=== PATIENT | female | born 1980 | race American Indian/Alaskan Native ===

== ENCOUNTER 2016-10-07 18:04 | Outpatient (CLI) | payer MEDICAID ==
[2016-10-07 21:28] LABS: Hematocrit 45.3 % (30.3-42.9); Hemoglobin 14.6 gm/dl (10.1-14.3); Mean Corpuscular HGB Conc 32 % (30-34); Mean Corpuscular Hemoglobin 26 pg (28-32); Mean Corpuscular Volume 81 fl (79-97); Red Cell Distribution Width 14.7 % (13.2-15.2); White Blood Count 7.6 K/mm3 (4.5-11.0)
[2016-10-07 21:42] LABS: Platelet Count 121 K/mm3 (140-440)
[2016-10-07 21:43] LABS: Bilirubin,Urine SM (Negative); Blood,Urine NEG (Negative); Ketones,Urine TR mg/dL (Negative); Leukocyte Esterase,Urine SM (Negative); Mucus,Urine 3+ /HPF; Nitrite,Urine NEG (Negative)
[2016-10-07 21:46] LABS: Alanine Aminotransferase 9 units/L (7-56); Lactate Dehydrogenase 405 units/L (91-180); Uric Acid 6.3 mg/dL (3.5-7.6)
[2016-10-07 21:56] VITALS: BP 144/65
[2016-10-07] MEDS ORDERED: NORCO 5/325 PO ONE (22:02)
[2016-10-07] MEDS ORDERED: NORCO 5/325 ONE (22:06)
== END 2016-10-07 23:07 | disposition home or self-care (01) ==
LOC: TRG 18:04
PROVIDERS: ATTEND Obstetrics & Gynecology
DX: O47.1 False labor at or after 37 completed weeks of gestation (principal); Z3A.39 39 weeks gestation of pregnancy
CPT/HCPCS: 36415; 81001; 82565; 83615; 84450; 84460; 84550; 85027

== ENCOUNTER 2016-10-17 21:17 | Inpatient (IN) | payer MEDICAID ==
[2016-10-17] MEDS ORDERED: MILK OF MAGNESIA PO PRN (21:33)
[2016-10-17] MEDS ORDERED: COLACE PO PRN (21:33)
[2016-10-17] MEDS ORDERED: MAGNESIUM SULFATE 4GM/100ML 4 GM/100 ML BAG IV ONE (21:33)
[2016-10-17] MEDS ORDERED: APRESOLINE IV PRN (21:33)
[2016-10-17] MEDS ORDERED: ZOFRAN IV PRN (21:33)
--- NOTE | 2016-10-17 21:42 | Short Stay Summary ---
Short Stay Documentation Date of service: 10/17/16 - History Principal diagnosis: Preeclampsia H&P: obtained from office Social history: no significant social history - Allergies and Medications Current Medications: Allergies No Known Allergies Allergy (Verified 09/24/16 20:55) Home Medications Medication Instructions Recorded Confirmed Last Taken Type Vit No.130/Iron/FA 1 each PO QDAY 09/25/16 10/11/16 09/24/16 History [ Tablet] Active Medications Acetaminophen (Tylenol) 650 mg PO Q4H PRN PRN Reason: Pain MILD(1-3)/Fever >100.5/MCCURDY Docusate Sodium (Colace) 100 mg PO Q12H PRN PRN Reason: Constipation Hydralazine HCl (Apresoline) 10 mg IV Q30MIN PRN PRN Reason: Blood Pressure Lactated Ringer's (Lactated Ringers) 1,000 mls @ 125 mls/hr IV DIRECT NIDHI Magnesium Sulfate (Magnesium Sulfate 40gm/1000ml) 40 gm in 1,000 mls @ 50 mls/ hr IV DIRECT NIDHI PRN Reason: 2 GM/HR Magnesium Sulfate (Magnesium Sulfate 4gm/100ml) 4 gm in 100 mls @ 300 mls/hr IV ONCE ONE Stop: 10/17/16 21:52 Magnesium Hydroxide (Milk Of Magnesia) 30 ml PO QHS PRN PRN Reason: Laxative Effect Multivitamins/Iron/Calcium ( Vitamin) 1 each PO QDAY NIDHI Ondansetron HCl (Zofran) 4 mg IV Q6H PRN PRN Reason: Nausea And Vomiting - Physical exam General appearance: no acute distress Integumentary: no rash HEENT: Atraumatic Lungs: Clear to auscultation Breasts: deferred Heart: Regular rate Gastrointestinal: normal Female Genitourinary: deferred Rectal Exam: deferred Extremities: No edema Neurological: Normal speech Short Stay Discharge Plan Follow up with: MYLENE GIBSON MD [Primary Care Provider] - 7 Days
[2016-10-17 22:10] LABS: Basophils % (Auto) 0.8 % (0.0-1.8); Eosinophils % (Auto) 3.6 % (0.0-4.3); Hematocrit 31.5 % (30.3-42.9); Hemoglobin 10.1 gm/dl (10.1-14.3); Mean Corpuscular HGB Conc 32 % (30-34); Mean Corpuscular Hemoglobin 26 pg (28-32); Mean Corpuscular Volume 81 fl (79-97); Platelet Count 288 K/mm3 (140-440); Red Cell Distribution Width 15.1 % (13.2-15.2); White Blood Count 8.5 K/mm3 (4.5-11.0)
[2016-10-17 22:20] LABS: Alanine Aminotransferase 17 units/L (7-56)
[2016-10-17 22:21] LABS: Albumin 3.4 g/dL (3.9-5); Albumin/Globulin Ratio 0.9 %; Alkaline Phosphatase 122 units/L (35-129); BUN/Creatinine Ratio 11.42; Bilirubin,Total 0.2 mg/dL (0.1-1.2); Blood Urea Nitrogen 8 mg/dL (7-17); Calcium 8.9 mg/dL (8.4-10.2); Carbon Dioxide 24 mmol/L (22-30); Chloride 102.9 mmol/L (98-107); Glucose 79 mg/dL (65-100); Sodium 138 mmol/L (137-145); Total Protein 7.3 g/dL (6.3-8.2)
[2016-10-17] MEDS: TYLENOL PO PRN (22:21)
[2016-10-17] MEDS: MAGNESIUM SULFATE 40GM/1000ML 40 GM/1,000 ML BAG IV SCH (22:22)
[2016-10-17] MEDS: LACTATED RINGERS 1,000 ML IV SCH (22:23)
[2016-10-17 22:26] LABS: Alanine Aminotransferase 17 units/L (7-56)
[2016-10-17 22:32] LABS: Anion Gap 16 mmol/L; Potassium 4.5 mmol/L (3.6-5.0)
[2016-10-17 23:39] LABS: Bilirubin,Urine NEG (Negative); Blood,Urine SM (Negative); Ketones,Urine NEG (Negative); Leukocyte Esterase,Urine NEG (Negative); Mucus,Urine 1+ /HPF; Nitrite,Urine NEG (Negative)
[2016-10-18] MEDS: TYLENOL PO PRN ×2 (02:32→06:46)
[2016-10-18] MEDS: PERCOCET 5/325 PO PRN ×3 (07:49→20:03)
[2016-10-18] MEDS: PRENATAL VITAMIN PO SCH (10:03)
[2016-10-18] MEDS: NORMODYNE PO SCH ×2 (10:04→22:03)
[2016-10-18] MEDS: LACTATED RINGERS 1,000 ML IV SCH (12:04)
--- NOTE | 2016-10-18 16:23 | Progress Note ---
Assessment and Plan - Patient Problems (1) Pre-eclampsia affecting puerperium Onset Date: 10/18/16 Current Visit: Yes Status: Acute Plan to address problem: A: preeclampsia - improved on IV Magnesium sulfate and PO Labetolol. Most likely Chronic hypertension Chronic Hypertension P: Continue with Labetolol 200mg BID Anticipate discharge in 24hrs Subjective - Subjective Date of service: 10/18/16 Principal diagnosis: Preeclampsia Interval history: Pt states she is feeling a little better. Headaches improved. BP 127/71 after starting Labetolol 200mg BID this morning. Patient reports: appetite normal, voiding normally, pain well controlled, ambulating normally Objective - Vital Signs Latest vital signs: Vital Signs Temp Pulse Pulse Resp BP BP 10/18/16 14:00 97.9 F 70 18 127/71 10/18/16 12:00 98.1 F 73 18 142/74 10/18/16 10:15 140/81 10/18/16 10:04 74 135/79 10/18/16 10:00 74 135/79 10/18/16 07:59 72 180/100 10/18/16 07:55 72 180/100 10/18/16 07:45 97.7 F 72 20 163/94 10/18/16 05:55 97.8 F 70 20 148/97 10/18/16 04:30 67 18 155/92 10/18/16 02:30 74 155/89 10/18/16 00:20 97.5 F L 74 20 156/88 10/17/16 23:35 78 138/89 10/17/16 23:20 76 147/90 10/17/16 23:05 80 150/90 10/17/16 23:00 80 154/97 10/17/16 22:50 178/98 Intake and Output 10/18/16 10/18/16 10/18/16 06:59 14:59 22:59 Intake Total 750 1540 Output Total 800 1000 Balance -50 540 Intake: IV 750 1300 Lactated Ringers 1,000 ml 450 1000 @ 125 mls/hr IV DIRECT NIDHI Rx#:[id number] MAGNESIUM SULFATE 40GM/ 300 300 1000ML 40 gm In 1,000 ml @ 2 GM/HR 50 mls/hr IV DIRECT NIDHI Rx#:[id number] Oral 240 Output: Urine 800 1000 Indwelling Catheter 800 1000 Other: Total, Intake Amount 240 Total, Output Amount 800 500 Voiding Method Indwelling Catheter - Exam Breasts: Present: deferred Cardiovascular: Present: Regular rate Lungs: Present: Clear to auscultation Abdomen: Present: normal appearance, soft Uterus: Present: normal Extremities: Present: normal - Labs Labs: Abnormal lab results 10/17/16 10/17/16 10/18/16 Range/Units 21:45 21:45 07:15 MCH 26 L (28-32) pg [place] % (Auto) 7.7 H (0.0-7.3) % Magnesium 5.2 H (1.7-2.3) mg/dL Albumin 3.4 L (3.9-5) g/dL 10/18/16 Range/Units 12:41 MCH (28-32) pg [place] % (Auto) (0.0-7.3) % Magnesium 5.2 H (1.7-2.3) mg/dL Albumin (3.9-5) g/dL Laboratory Tests 10/17/16 10/17/16 10/17/16 21:45 21:45 21:45 WBC 8.5 RBC 3.90 Hgb 10.1 Hct 31.5 MCV 81 MCH 26 L MCHC 32 RDW 15.1 Plt Count 288 Lymph % (Auto) 27.9 [place] % (Auto) 7.7 H Eos % (Auto) 3.6 Baso % (Auto) 0.8 Lymph # 2.4 [place] # 0.7 Eos # 0.3 Baso # 0.1 Seg Neutrophils % 60.0 Seg Neutrophils # 5.1 Sodium 138 Potassium 4.5 Chloride 102.9 Carbon Dioxide 24 Anion Gap 16 BUN 8 Creatinine 0.7 Estimated GFR > 60 BUN/Creatinine Ratio 11.42 Glucose 79 Calcium 8.9 Magnesium Total Bilirubin 0.2 AST 27 27 ALT 17 17 Alkaline Phosphatase 122 Total Protein 7.3 Albumin 3.4 L Albumin/Globulin Ratio 0.9 Urine Color Urine Turbidity Urine pH Ur Specific [place] Urine Protein Urine Glucose (UA) Urine Ketones Urine Blood Urine Nitrite Urine Bilirubin Urine Urobilinogen Ur Leukocyte Esterase Urine WBC (Auto) Urine RBC (Auto) U Epithel Cells (Auto) Urine Mucus 10/17/16 10/18/16 10/18/16 23:02 07:15 12:41 WBC RBC Hgb Hct MCV MCH MCHC RDW Plt Count Lymph % (Auto) [place] % (Auto) Eos % (Auto) Baso % (Auto) Lymph # [place] # Eos # Baso # Seg Neutrophils % Seg Neutrophils # Sodium Potassium Chloride Carbon Dioxide Anion Gap BUN Creatinine Estimated GFR BUN/Creatinine Ratio Glucose Calcium Magnesium 5.2 H 5.2 H Total Bilirubin AST ALT Alkaline Phosphatase Total Protein Albumin Albumin/Globulin Ratio Urine Color Yellow Urine Turbidity Clear Urine pH 7.0 Ur Specific [place] 1.017 Urine Protein 30 mg/dl Urine Glucose (UA) Neg Urine Ketones Neg Urine Blood Sm Urine Nitrite Neg Urine Bilirubin Neg Urine Urobilinogen 2.0 Ur Leukocyte Esterase Neg Urine WBC (Auto) 1.0 Urine RBC (Auto) 1.0 U Epithel Cells (Auto) 1.0 Urine Mucus 1+
[2016-10-18] MEDS: MAGNESIUM SULFATE 40GM/1000ML 40 GM/1,000 ML BAG IV SCH (18:06)
[2016-10-19] MEDS: PERCOCET 5/325 PO PRN ×2 (00:37→09:59)
[2016-10-19] MEDS: NORMODYNE PO SCH (09:59)
[2016-10-19] MEDS: PRENATAL VITAMIN PO SCH (09:59)
--- NOTE | 2016-10-19 12:48 | Progress Note ---
Assessment and Plan HD # 2 s/p HTN P: -Discharged home -Follow-up in clinic on Saturday for BP check - Patient Problems (1) Chronic hypertension affecting Current Visit: No Status: Acute Subjective - Subjective Date of service: 10/19/16 Principal diagnosis: Preeclampsia Interval history: Patient feeling better, blood pressure well controlled on labetalol Patient reports: appetite normal, voiding normally, pain well controlled, flatus , ambulating normally, no dizzy ambulation, no nauseated Objective - Vital Signs Latest vital signs: Vital Signs Temp Pulse Pulse Resp BP BP 10/19/16 09:59 75 135/80 10/19/16 08:50 98 F 75 20 135/80 10/19/16 04:00 98.6 F 74 18 120/69 10/19/16 00:00 98.2 F 98 H 18 117/72 10/18/16 22:10 98.4 F 63 18 130/73 10/18/16 22:03 87 156/88 10/18/16 20:00 98.2 F 76 18 156/81 10/18/16 18:00 98 F 67 18 146/81 10/18/16 16:00 97.6 F 72 18 124/70 10/18/16 14:00 97.9 F 70 18 127/71 Intake and Output 10/18/16 10/19/16 10/19/16 22:59 06:59 14:59 Intake Total 520 Output Total 1400 700 Balance -880 -700 Intake: IV 400 MAGNESIUM SULFATE 40GM/ 400 1000ML 40 gm In 1,000 ml @ 2 GM/HR 50 mls/hr IV DIRECT NIDHI Rx#:[id number] Oral 120 Output: Urine 1400 700 Indwelling Catheter 1400 400 Void 300 Other: Total, Intake Amount 120 Total, Output Amount 600 300 Voiding Method Indwelling Catheter # Voids Void 1 - Labs Labs: Abnormal lab results 10/18/16 10/18/16 10/19/16 Range/Units 12:41 18:14 01:14 Magnesium 5.2 H 5.8 H 4.4 H (1.7-2.3) mg/dL
--- NOTE | 2016-10-19 12:51 | Discharge Summary ---
Providers - Providers Date of Admission: 10/17/16 21:17 Date of discharge: 10/19/16 Attending physician: MYLENE BARRON MD Primary care physician: MYLENE BARRON MD Hospitalization Reason for admission: observation (elevated blood pressure ) Discharge diagnosis: other (elevated blood pressure ) Hospital course: Patient was admitted to the floor. She was started on magnesium and labetalol, HELLP labs were negative. She is discharged on labetalol 200 mg twice a day to follow-up in clinic in 3 days Condition at discharge: Good Disposition: DISCHARGED TO HOME OR SELFCARE - Discharge Diagnoses (1) Chronic hypertension affecting Status: Acute Plan - Discharge Medications Prescriptions: Acetaminophen [Acetaminophen SUPPOS] 325 mg [place] Q6HR PRN #90 supp PRN Reason: Pain Labetalol [Normodyne TAB] 200 mg PO BID #60 tablet - Provider Discharge Summary Activity: no sex for 6 weeks, no heavy lifting 4 weeks, no strenuous exercise Diet: routine Instructions: routine Additional instructions: [] Smoking cessation referral if applicable(refer to patient education folder for contact #) [] Refer to [facility]'s [facility] Booklet Call your doctor immediately for: * Fever > 100.5 * Heavy vaginal bleeding ( >1 pad per hour) * Severe persistent headache * Shortness of breath * Reddened, hot, painful area to leg or breast * Drainage or odor from incision. * Keep incision clean and dry at all times and follow doctor's instructions regarding bathing/showering - Follow up plan Follow up: MYLENE GIBSON MD [Primary Care Provider] - 3 Days
[2016-10-19 13:17] VITALS: BP 133/68
== END 2016-10-19 15:00 | disposition home or self-care (01) | DRG 776 ==
LOC: OB 21:17 → OBSVTOIN 21:17
PROVIDERS: ADMIT Obstetrics & Gynecology; ATTEND Obstetrics & Gynecology
DX: O11.5 Pre-existing hypertension with pre-eclampsia, complicating the puerperium (principal); O10.03 Pre-existing essential hypertension complicating the puerperium
CPT/HCPCS: 36415; 80053; 81001; 83735; 84450; 84460; 85025; J0360; J2405; J3475; J7120